=== PATIENT | female | born 2005 | race Caucasian/White ===

== ENCOUNTER 2023-04-13 21:31 | Emergency (ER) | payer OTHER, SELFPAY ==
[~2023-04-13 21:31] MED LIST: Iopamidol 370 76% 100 ML VIAL ONE
[2023-04-13] MEDS ORDERED: Ibuprofen 200 MG TAB ONE (21:50)
[2023-04-13 22:10] LABS: Pregnancy Test - Urine (BHCG) Negative (Negative); Pregu Control Background? CLEAR/WHITE (CLR/WHITE); Pregu Control Bar Appear? YES (CONTROL BAR); Specific Gravity 1.013 (1.002-1.036)
[2023-04-13 22:11] LABS: #Basophils 0.1 thou/uL (0.0-0.2); #Eosinphils 0.2 thou/uL (0.0-0.7); #Lymphocytes 3.8 thou/uL (1.20-3.40); #Monocytes 0.5 thou/uL (0.11-0.59); #Neutrophils 4.6 thou/uL (1.40-6.50); %Basophils 1.2 % (0.0-1.0); %Eosinophils 2.4 % (0.0-10.0); %Lymphocytes 41.1 % (28.0-48.0); %Monocytes 5.7 % (0.0-4.0); %Neutrophils 49.6 % (31.0-61.0); Bilirubin Negative (Negative); Blood, Urine Negative (Negative); Clarity Clear (Clear); Glucose, Urine (Dipstick) Negative (Negative); Hemoglobin 15.3 g/dL (12.0-16.0); Ketone, Urine Negative (Negative); Leukocyte Negative (Negative); Mean Corpuscular HGB CONC 32.7 g/dL (32.0-36.0); Mean Corpuscular Hemoglobin 29.4 pg (25.0-35.0); Mean Corpuscular Volume 90.1 fl (78.0-98.0); Mean Platelet Volume 6.5 fL (7.4-10.4); Nitrite Negative (Negative); Platelet Count 416 10x3/uL (130-400); Protein, Urine (Dipstick) 100 mg/dL (Neg-Trace); RBC Distribution Width 11.3 % (11.5-14.5); Red Blood Cell (RBC) Count 5.18 mill/uL (4.00-5.20); Specific Gravity, Urine 1.015 (1.005-1.030); Urobilinogen 0.2 mg/dL (Less than 2); White Blood Cell (WBC) Count 9.3 10x3/uL (4.8-10.8)
[2023-04-13 22:20] LABS: CAUTI Indications for Culture Pelvic or flank pain; Squamous Epithelial 0-3 HPF (0-3); WBC/HPF 0-3 HPF (0-3)
[2023-04-13 22:21] LABS: Urine Culture Reflex No No
[2023-04-13 22:42] LABS: Carbon Dioxide 21 mmol/L (22-29)
[2023-04-13 22:44] LABS: ALT (SGPT) 16 U/L (8-55); AST (SGOT) 43 U/L (5-30); Albumin 4.8 g/dL (3.5-5.0); Alkaline Phosphatase 69 U/L (40-100); BUN (Urea Nitrogen) 9 mg/dL (8.4-21.0); Bilirubin, Total 0.5 mg/dL (0.2-1.2); Calc. Creatinine Clearance 0 mL/min (70-130); Calcium 9.4 mg/dL (7.6-10.4); Chloride 102 mmol/L (98-107); Estimated GFR 128; Globulin 4.3 g/dL (2.4-3.5); Glucose 83 mg/dL (70-105); Potassium 5.5 mmol/L (3.5-5.1); Protein, Total 9.1 g/dL (6.0-8.3); Sodium 135 mmol/L (136-145)
[2023-04-13 22:45] LABS: Anion Gap 12 mmol/L (10-20)
== END 2023-04-13 23:30 | disposition home or self-care (01) ==
LOC: NAV ERS 21:31
DX: R10.30 Lower abdominal pain, unspecified (principal)
CPT/HCPCS: 74177; 80053; 81001; 81025; 85025; Q9967